=== PATIENT | female | born 1995 ===

== ENCOUNTER 2017-11-03 15:44 | Emergency (ER) | payer BC, OTHER ==
[2017-11-03 16:12] VITALS: BP 123/80
--- NOTE | 2017-11-03 17:11 | UC ---
Rectal Pain HPI - HPI Summary HPI Summary: LAST MONDAY AND MONDAY HAD VERY HARD BOWEL MOVEMENTS. ON MONDAY HAD SOME BLEEDING WITH BOWEL MOVEMENT. SMALL AMOUNTS OF BLOOD ON TP WITH BOWEL MOVEMENTS. PATIENT IS A STUDENT, SPENDS A LOT OF TIME SITTNIG, LOW FIBER DIET, DOES NOT STAY HYDRATED. - History Of Current Complaint Chief Complaint: UCGI Stated Complaint: PERSONAL Time Seen by Provider: 11/03/17 16:17 Hx Obtained From: Patient Hx Last Menstrual Period: 10/17/17 Onset/Duration: Gradual Onset, Lasting Days Severity Initially: Moderate Severity Currently: Mild Pain Intensity: 0 Pain Scale Used: 0-10 Numeric Location Of Pain: (No Pain) Character: Itching Aggravating Factor(s): Bowel Movement Alleviating Factor(s): Other - HAS TRIED NO REMEDIES Associated Signs And Symptoms: Positive: Rectal Bleeding, Bright Red Blood w/ Stool, Constipation. Negative: Blood-Streaked Stool, Blood W/O Stool - Allergies/Home Medications Allergies/Adverse Reactions: Allergies Allergy/AdvReac Type Severity Reaction Status Date / Time Penicillins Allergy Unknown COULDNT Verified 11/03/17 16:02 WALK Sulfa Antibiotics Allergy Unknown Rash Verified 11/03/17 16:03 Home Medications: Home Medications Oral Contraceptive 1 tab PO DAILY 11/03/17 [History] PMH/Surg Hx/FS Hx/Imm Hx Previously Healthy: Yes - Surgical History Surgical History: None - Family History Known Family History: Positive: Other - SISTER HAS HEMORRHOIDS - Social History Occupation: Student Lives: With Family Alcohol Use: Occasionally Substance Use Type: None Smoking Status (MU): Never Smoked Tobacco Review of Systems Constitutional: Negative Skin: Negative Eyes: Negative ENT: Negative Respiratory: Negative Cardiovascular: Negative Gastrointestinal: Negative Genitourinary: Negative Motor: Negative Neurovascular: Negative Musculoskeletal: Negative Neurological: Negative Psychological: Negative Is Patient Immunocompromised?: No All Other Systems Reviewed And Are Negative: Yes Physical Exam Triage Information Reviewed: Yes Appearance: Well-Appearing, No Pain Distress, Well-Nourished Vital Signs: Initial Vital Signs Temp 98 F 11/03/17 16:03 Pulse 74 11/03/17 16:03 Resp 16 11/03/17 16:03 BP 123/80 11/03/17 16:03 Pulse Ox 99 11/03/17 16:03 Vital Signs Reviewed: Yes Eye Exam: Normal ENT Exam: Normal ENT: Positive: Normal ENT inspection Dental Exam: Normal Neck exam: Normal Respiratory Exam: Normal Respiratory: Positive: Chest non-tender, Lungs clear, Normal breath sounds, No respiratory distress, No accessory muscle use Cardiovascular Exam: Normal Cardiovascular: Positive: RRR, No Murmur, Pulses Normal, Brisk Capillary Refill Abdomen Description: Positive: Nontender, No Organomegaly, Soft, Other: - SMALL EXTERNAL HEMORRHOID Musculoskeletal Exam: Normal Musculoskeletal: Positive: Strength Intact Neurological Exam: Normal Psychological Exam: Normal Skin Exam: Normal Rectal Pain Course/Dx - Differential Dx/Diagnosis Differential Diagnosis/HQI/PQRI: Hemorrhoid(s) Provider Diagnoses: HEMORRHOID Discharge - Discharge Plan Condition: Stable Disposition: HOME Patient Education Materials: Hemorrhoids (ED), Rectal Bleeding (ED) Referrals: [facility] [place] [facility] [Outside] Manohar Fenton MD [Medical Doctor] - If Needed
== END 2017-11-03 16:57 | disposition home or self-care (01) ==
LOC: UCCORT 15:44
DX: K64.4 Residual hemorrhoidal skin tags (principal); Z88.0 Allergy status to penicillin; Z88.2 Allergy status to sulfonamides
CPT/HCPCS: 99201; G0463